=== PATIENT | female | born 1970 | race Caucasian/White ===

== ENCOUNTER → 2018-02-24 | Outpatient (CLI) | payer BC ==
--- NOTE | 2018-02-24 15:05 | MM ---
Reason for exam: follow-up at short interval from prior study. Last mammogram was performed 7 months ago. History: Patient is nulliparous. Took hormonal contraceptives for 12 years beginning at age 17. Physical Findings: Nurse Summary: less than 0.5cm nodule in the left breast at 12 o'clock (nurse kp). MG Diagnostic Mammo w CAD THOMAS Bilateral CC and MLO view(s) were taken. Prior study comparison: August 04, 2017, left breast MG work up mamm w CAD LT. July 30, 2017, bilateral MG screening mammo w CAD. There are scattered fibroglandular densities. There is no discrete abnormality. These results were verbally communicated with the patient and result sheet given to the patient on 02/24/18. ASSESSMENT: Negative, BI-RAD 1 RECOMMENDATION: Return to routine screening mammogram schedule for both breasts.
--- NOTE | 2018-02-24 15:06 | USB ---
Reason for exam: follow-up at short interval from prior study. History: Patient is nulliparous. Took hormonal contraceptives for 12 years beginning at age 17. US Breast LT Left complete breast ultrasound includes all four quadrants, the retroareolar region and axilla. Finding demonstrates duct ectasia at the nipple. These results were verbally communicated with the patient and result sheet given to the patient on 02/24/18. ASSESSMENT: Negative, BI-RAD 1 RECOMMENDATION: Return to routine screening mammogram schedule for both breasts. Manage on a clinical basis with regard to left palpable.
== END | disposition home or self-care (01) ==
LOC: RADMAMWWP 07:50
PROVIDERS: ATTEND Obstetrics & Gynecology
DX: R92.8 Other abnormal and inconclusive findings on diagnostic imaging of breast (principal)
CPT/HCPCS: 77066